=== PATIENT | male | born 1960 | race Caucasian/White ===

== ENCOUNTER 2017-04-02 13:01 | Inpatient (IN) | payer OTHER ==
[~2017-04-02] VITALS: Ht 177.8 cm; Wt 80.5 kg
[~2017-04-02 13:01] MED LIST: ALPRAZOLAM0.25 M2 PO; ALPRAZOLAM0.25 MG GT; ALPRAZOLAM0.25 MG PO; ALTACE10 M1 PO; ALTACE10 MG PO; AMBIEN5 M1 PO; AMITIZA24 MICROGR PO; ANALGESIC325 M1 PO; ANALGESIC325 MG PO; ASPIR-MOX 325325 MG PO; ASPIR-TRIN325 M1 PO; ASPIRIN325 MG PO; Advair HFA 115/21 IH; Ambien PO; BACLOFEN10 MG PO; BICARSIM80 MG PO; CALCIUM CITRAT1 EA18 PO; CARAFATE1 GM PO; CARDIZEM30 MG PO; CATAPRES-TTS 30.3 MG TD; CATAPRES0.1 MG GT; CATAPRES0.2 MG PO; CERTAGEN237 ML PO; CLONIDINE1 EAC1 TD; COLACE100 MG PO; Chronulac,Cephulac,E GT; Colace GT; DELTASONE10 MG GT; DELTASONE10 MG PO; DICLOFENAC SODI75 MG PO; DILAUDID1 MG/ML IV; DOLOPHINE HCL5 MG GT; DULCOLAX10 MG PR; DUONEB 2.5-0.5 M3 ML AEROSOL; DUONEB3 ML IH; DURAGESIC75 MCG TD; Duragesic TD; EMS NITROSTAT0.4 M1 SL; ERGOCALCIF50000 UNIT PO; FEOSOL325 MG PO; FERROUS SULFAT325 MG PO; FISH OIL 1,0001 EAC7 PO; FLAGYL500 MG PO; FLOMAX0.4 MG PO; FOLIC ACID1 MG PO; FOSAMAX5 MG PO; GABAPENTIN300 MG PO; GLUCAGEN1 MG IM/SC; Heparin Lock 100 uni IV; IMDUR30 MG GT; IMDUR30 MG PEG; IMDUR30 MG PO; IRON325 M1 PO; IRON325 MG PO; KLONOPIN0.5 M1 PO; KRISTALOSE10 GM PO; LASIX20 MG PO; LASIX40 MG PO; LIORESAL10 MG PO; LIPITOR80 MG PO; LOPRESSOR12.5 MG PO; LOPRESSOR25 MG GT; LOPRESSOR25 MG PO; LOVAZA1 GM PO; LOVENOX40 MG/0.4 PO; LOVENOX40 MG/0.4 SC; MAG-OXIDE400 MG PO; MARINOL2.5 M1 PO; METOPROLOL SUCC25 MG PO; MIRALAX17 GM PO; MITRAZOL POWDER30 GM TP; MORPHINE SULFAT30 M1 PO; MORPHINE SULFAT30 M4 PO; MS CONTIN,ORAMO30 MG PO; MYCOSTATIN 100,60 ML PO; Marinol PO; Maxipime IV; Mylicon,Mylanta Gas, PO; NEURONTIN300 MG GT; NEURONTIN300 MG PO; NEURONTIN600 M1 PO; NEURONTIN600 MG PO; NEURONTIN800 MG PO; NIZORAL 2% CREA15 GM TP; NORVASC10 MG PO; NOVOLOG PE100 UNITS/ SC; Neurontin PO; OMEGA 3 1,0001 EAC1 PO; OMEGA 3 1,0001 EACH PO; OXYCODONE5 MG PO; Omega III EPA + DHA PO; PAROXETINE HCL40 MG PO; PAXIL20 M1 PO; PAXIL30 MG PO; POLYETHYLENE G255 GM PO; PREDNISONE10 MG PO; PREVACID PO; PREVACID SOLUTA30 M1 GT; PREVACID SOLUTA30 M1 PO; PRINIVIL20 MG PO; PROCRIT3000 UNIT/ SC; PROCRIT4000 UNIT/ SC; PROCRIT4000 UNIT/ SQ; PROTONIX40 MG PO; PULMOCARE1000 ML GT; Paxil PO; ROCEPHIN 2 GM VI2 GM IM; ROCEPHIN1 GM/50 ML IV; ROXICODONE5 MG/5 ML GT; Remove Duragesic Pat TD; SALINE FLUSH 5 M5 ML IV; SANTYL30 GM TP; SENNA8.6 MG PO; SENOKOT,SENN1 TABLET PO; SPIRONOLACTONE25 MG PO; STOOL SOFTENER50 MG PO; SUCRALFATE1 GM PO; Senokot,Sennagen PO; THIAMINE HCL100 MG PO; TOBRAMYCIN IV; TRAZODONE HCL50 MG PO; TYLENOL650 MG/20. PO; VALIUM5 MG PO; VANCOMYCIN100 MG/ML IV; VIBRAMYCIN100 MG PO; VICODIN 5-3001 EACH PO; Valium PO; Vancomycin IV; WELLBUTRIN SR100 MG PO; WELLBUTRIN100 MG PO; ZANTAC300 MG PO; ZYVOX600 MG PO; Zestril,Prinivil PO; Zofran IV; [UNRECOGNIZED DRUG - OTHER]; oxyCODONE GT; oxyCODONE PO
[2017-04-02 14:35] LABS: EOSINOPHIL (%) 0.4 % (0-5); EOSINOPHIL COUNT 0.1 K/uL (0-0.3); HEMATOCRIT 48.1 % (38.0-50.0); IMMATURE GRANULOCYTE (%) 0.8 % (0.0-0.7); IMMATURE GRANULOCYTE COUNT 0.2 K/uL; INSTRUMENT ABS NEUTROPHIL CT 15.1 K/uL; LYMPHOCYTE COUNT 2.1 K/uL (1.0-2.8); MCH 27.4 PG (29.0-34.0); MCHC 30.8 G/DL (30.0-36.0); MCV 88.9 FL (86-99); MEAN PLAT.VOLUME 9.6 uM^3 (9.0-12.4); MONOCYTE (%) 8.4 % (3-12); MONOCYTE COUNT 1.6 K/uL (0-0.8); NEUTROPHIL (%) 79.3 % (45-76); NEUTROPHIL COUNT 15.1 K/uL (1.8-6.4); PLATELET COUNT 127 K/uL (156-360); RBC DIS.WIDTH-CV 17.3 % (11.8-14.6); RED BLOOD COUNT 5.41 M/uL (4.00-5.50)
[2017-04-02 14:45] LABS: CHLORIDE 100 mEq/L (99-109); POTASSIUM 4.5 mEq/L (3.7-5.4); SODIUM 139 mEq/L (136-147)
[2017-04-02 14:47] LABS: GLUCOSE 127 mg/dL (70-99)
[2017-04-02 14:48] LABS: ANION GAP 7 MEQ/L (2-14)
[2017-04-02 14:49] LABS: TOTAL BILIRUBIN 1.3 mg/dL (0.0-1.0)
[2017-04-02 14:50] LABS: ALKALINE PHOSPHATASE 82 IU/L (3-129)
[2017-04-02 14:51] LABS: GFR ESTIMATE (CALCULATED) > 59 mL/min/
[2017-04-02 14:52] LABS: UREA NITROGEN (BUN) 19 mg/dL (9-23)
[2017-04-02 14:54] LABS: LIPASE 15 U/L (1.0-51.0)
[2017-04-02 17:22] LABS: ADD MIUA? YES; BILIRUBIN NEGATIVE; BLOOD LARGE; COLOR AMBER ((YELLOW)); GLUCOSE (STRIP) NEGATIVE; KETONES NEGATIVE; LEUKOCYTES LARGE; NITRITE NEGATIVE; PROTEIN (STRIP) 30; SPECIFIC GRAVITY 1.035 (1.000-1.030); UROBILINOGEN 0.2 MG/DL (0.2-1.0)
[2017-04-02 17:39] LABS: CASTS NONE SEEN /LPF; EPITHELIAL CELLS 1+ /HPF; MUCUS NONE SEEN /LPF
[2017-04-02 17:40] LABS: BACTERIA 1+ /HPF; RED BLOOD CELLS NONE SEEN /HPF (0-5); UCUL ADDED? YES; WHITE BLOOD CELLS TNTC /HPF (0-5)
[2017-04-02] MEDS ORDERED: IBUPROFEN800 MG PO (18:37)
[2017-04-02] MEDS ORDERED: BACLOFEN10 MG PO (18:38)
[2017-04-02] MEDS ORDERED: DUONEB 2.5-0.5 M3 ML AEROSOL (18:42)
[2017-04-02] MEDS ORDERED: ADVAIR 250/501 DISK IH (18:44)
[2017-04-02] MEDS ORDERED: BUSPAR10 MG PO (18:45)
[2017-04-02] MEDS ORDERED: AMITIZA24 MICROGR PO (18:45)
[2017-04-02] MEDS ORDERED: DOXYCYCLINE HY100 M3 PO (18:48)
[2017-04-02] MEDS ORDERED: FERROUS SULFAT325 MG PO (18:50)
[2017-04-02] MEDS ORDERED: FLONASE ALLERG9.9 ML BOTH NARES (18:53)
[2017-04-02] MEDS ORDERED: KLOR-CON 1010 ME1 PO (18:55)
[2017-04-02] MEDS ORDERED: LACTULOSE10 GM/151 PO (18:56)
[2017-04-02] MEDS ORDERED: LIPITOR80 MG PO (18:57)
[2017-04-02] MEDS ORDERED: PANTOPRAZOLE SO40 MG PO (18:59)
[2017-04-02] MEDS ORDERED: FLORASTOR250 MG PO (19:04)
[2017-04-02] MEDS ORDERED: MILK OF MAGN PO (19:06)
[2017-04-02] MEDS ORDERED: SALINE NASAL SP45 ML BOTH NARES (19:07)
[2017-04-02] MEDS ORDERED: DULCOLAX10 MG PR (19:10)
[2017-04-02 19:38] LABS: TROP-I INTERPRETATION NEGATIVE; TROPONIN-I < 0.01 ng/mL (0.0-0.30)
[2017-04-02 19:42] LABS: INTER. NORMALIZED RATIO 1.2; PROTHROMBIN TIME 12.7 (9.2-11.2); PTT 31.1 (25-32)
[2017-04-02 21:18] VITALS: BP 126/82
[2017-04-02 22:08] LABS: METH RESISTANT S AUREUS PCR POSITIVE (NEGATIVE)
[2017-04-02 22:09] LABS: PROBE CHECK PASS
[2017-04-02 23:31] VITALS: BP 143/65
[2017-04-03 03:07] VITALS: BP 129/64
[2017-04-03 05:36] LABS: ALKALINE PHOSPHATASE 72 IU/L (3-129); ANION GAP 8 MEQ/L (2-14); CHLORIDE 106 MEQ/L (99-109); GFR ESTIMATE (CALCULATED) > 59 mL/min/; GLUCOSE 118 mg/dL (70-99); POTASSIUM 4.2 MEQ/L (3.7-5.4); SAMPLE HEMOLYSIS CHECK 0; SAMPLE ICTERIC CHECK 0; SAMPLE LIPEMIA CHECK 0; SODIUM 141 MEQ/L (136-147); TOTAL BILIRUBIN 1.8 MG/DL (0.0-1.0); UREA NITROGEN (BUN) 16 mg/dL (9-23)
[2017-04-03 05:37] LABS: EOSINOPHIL (%) 0.1 % (0-5); HEMATOCRIT 45.3 % (38.0-50.0); IMMATURE GRANULOCYTE (%) 0.6 % (0.0-0.7); IMMATURE GRANULOCYTE COUNT 0.1 K/uL; INSTRUMENT ABS NEUTROPHIL CT 10.2 K/uL; LYMPHOCYTE COUNT 0.7 K/uL (1.0-2.8); MCH 27.2 PG (29.0-34.0); MCHC 30.5 G/DL (30.0-36.0); MCV 89.3 FL (86-99); MEAN PLAT.VOLUME 9.9 uM^3 (9.0-12.4); MONOCYTE (%) 5.8 % (3-12); MONOCYTE COUNT 0.7 K/uL (0-0.8); NEUTROPHIL (%) 87.1 % (45-76); NEUTROPHIL COUNT 10.2 K/uL (1.8-6.4); PLATELET COUNT 105 K/uL (156-360); RBC DIS.WIDTH-CV 17.5 % (11.8-14.6); RBC DIS.WIDTH-SD 56.7 % (39-53); RED BLOOD COUNT 5.07 M/uL (4.00-5.50); WHITE BLOOD COUNT 11.7 K/uL (4.1-10.2)
[2017-04-03 05:42] LABS: HEMATOLOGY COMMENT 1 SMEAR COMPATIBLE
[2017-04-03 07:46] LABS: Estimated Average Glucose 126 mg/dL (70-123)
[2017-04-03 07:49] VITALS: BP 128/63
[2017-04-03 16:04] VITALS: BP 150/73
[2017-04-03 21:23] LABS: POINT-OF-CARE METER ID UU14188577
[2017-04-03 23:11] VITALS: BP 137/69
[2017-04-04 05:19] LABS: HEMATOCRIT 44.9 % (38.0-50.0); MCH 27.1 PG (29.0-34.0); MCHC 30.7 G/DL (30.0-36.0); MCV 88.2 FL (86-99); MEAN PLAT.VOLUME 10.2 uM^3 (9.0-12.4); PLATELET COUNT 117 K/uL (156-360); RBC DIS.WIDTH-CV 17.5 % (11.8-14.6); RBC DIS.WIDTH-SD 56.5 % (39-53); RED BLOOD COUNT 5.09 M/uL (4.00-5.50); WHITE BLOOD COUNT 8.3 K/uL (4.1-10.2)
[2017-04-04 05:33] LABS: CHLORIDE 104 mEq/L (99-109); POTASSIUM 4.3 mEq/L (3.7-5.4); SODIUM 143 mEq/L (136-147)
[2017-04-04 05:34] LABS: MAGNESIUM 2.2 mg/dL (1.3-2.7)
[2017-04-04 05:35] LABS: GLUCOSE 100 mg/dL (70-99)
[2017-04-04 05:36] LABS: ANION GAP 12 MEQ/L (2-14)
[2017-04-04 05:38] LABS: GFR ESTIMATE (CALCULATED) > 59 mL/min/
[2017-04-04 05:39] LABS: UREA NITROGEN (BUN) 22 mg/dL (9-23)
[2017-04-04 07:39] VITALS: BP 134/67
[2017-04-04 16:18] VITALS: BP 152/74
[2017-04-04 17:33] LABS: POINT-OF-CARE METER ID UU14149397
[2017-04-04 20:24] VITALS: BP 140/66
[2017-04-05 00:47] VITALS: BP 137/66
[2017-04-05 05:00] LABS: EOSINOPHIL (%) 2.2 % (0-5); EOSINOPHIL COUNT 0.1 K/uL (0-0.3); HEMATOCRIT 43.5 % (38.0-50.0); IMMATURE GRANULOCYTE (%) 0.4 % (0.0-0.7); INSTRUMENT ABS NEUTROPHIL CT 4.3 K/uL; LYMPHOCYTE COUNT 0.6 K/uL (1.0-2.8); MCH 26.9 PG (29.0-34.0); MCHC 30.3 G/DL (30.0-36.0); MCV 88.6 FL (86-99); MEAN PLAT.VOLUME 9.8 uM^3 (9.0-12.4); MONOCYTE (%) 10.8 % (3-12); MONOCYTE COUNT 0.6 K/uL (0-0.8); NEUTROPHIL (%) 76.7 % (45-76); NEUTROPHIL COUNT 4.3 K/uL (1.8-6.4); PLATELET COUNT 105 K/uL (156-360); RBC DIS.WIDTH-CV 17.5 % (11.8-14.6); RBC DIS.WIDTH-SD 57.5 % (39-53); RED BLOOD COUNT 4.91 M/uL (4.00-5.50)
[2017-04-05 05:01] VITALS: BP 148/72
[2017-04-05 05:01] LABS: WHITE BLOOD COUNT 5.5 K/uL (4.1-10.2)
[2017-04-05 05:12] LABS: CHLORIDE 104 mEq/L (99-109); POTASSIUM 3.7 mEq/L (3.7-5.4); SODIUM 142 mEq/L (136-147)
[2017-04-05 05:14] LABS: GLUCOSE 104 mg/dL (70-99)
[2017-04-05 05:15] LABS: ANION GAP 8 MEQ/L (2-14)
[2017-04-05 05:16] LABS: TOTAL BILIRUBIN 1.5 mg/dL (0.0-1.0)
[2017-04-05 05:17] LABS: ALKALINE PHOSPHATASE 85 IU/L (3-129)
[2017-04-05 05:18] LABS: GFR ESTIMATE (CALCULATED) > 59 mL/min/
[2017-04-05 05:19] LABS: UREA NITROGEN (BUN) 16 mg/dL (9-23)
[2017-04-05 09:00] VITALS: BP 122/54
[2017-04-05 11:44] LABS: POINT-OF-CARE METER ID UU14188577
[2017-04-05 11:45] VITALS: BP 130/54
[2017-04-05 17:21] LABS: POINT-OF-CARE METER ID UU14149397
[2017-04-05 19:55] VITALS: BP 159/72
[2017-04-05 21:26] LABS: POINT-OF-CARE METER ID UU14188577
[2017-04-05 23:44] VITALS: BP 132/63
[2017-04-06 03:56] VITALS: BP 169/76
[2017-04-06 06:06] LABS: EOSINOPHIL (%) 1.6 % (0-5); EOSINOPHIL COUNT 0.1 K/uL (0-0.3); HEMATOCRIT 43.2 % (38.0-50.0); IMMATURE GRANULOCYTE (%) 0.3 % (0.0-0.7); INSTRUMENT ABS NEUTROPHIL CT 4.8 K/uL; MCH 26.9 PG (29.0-34.0); MCHC 30.1 G/DL (30.0-36.0); MCV 89.3 FL (86-99); MEAN PLAT.VOLUME 9.7 uM^3 (9.0-12.4); MONOCYTE (%) 14.5 % (3-12); NEUTROPHIL (%) 69.1 % (45-76); NEUTROPHIL COUNT 4.8 K/uL (1.8-6.4); PLATELET COUNT 102 K/uL (156-360); RBC DIS.WIDTH-CV 17.7 % (11.8-14.6); RBC DIS.WIDTH-SD 58.9 % (39-53); RED BLOOD COUNT 4.84 M/uL (4.00-5.50)
[2017-04-06 06:37] LABS: ALKALINE PHOSPHATASE 78 IU/L (3-129); ANION GAP 8 MEQ/L (2-14); CHLORIDE 102 MEQ/L (99-109); GFR ESTIMATE (CALCULATED) > 59 mL/min/; GLUCOSE 86 mg/dL (70-99); POTASSIUM 3.5 MEQ/L (3.7-5.4); SAMPLE HEMOLYSIS CHECK 0; SAMPLE ICTERIC CHECK 0; SAMPLE LIPEMIA CHECK 0; SODIUM 142 MEQ/L (136-147); UREA NITROGEN (BUN) 13 mg/dL (9-23)
[2017-04-06 06:44] LABS: PREALBUMIN < 3.0 mg/dL (10-40); TOTAL BILIRUBIN 1.4 MG/DL (0.0-1.0)
[2017-04-06 08:47] VITALS: BP 135/64
[2017-04-06 11:47] LABS: POINT-OF-CARE METER ID UU14188577
[2017-04-06 16:30] VITALS: BP 139/77
[2017-04-06 21:22] LABS: POINT-OF-CARE METER ID UU14188577
[2017-04-06 23:51] VITALS: BP 132/69
[2017-04-07 04:31] VITALS: BP 175/86
[2017-04-07 05:24] LABS: EOSINOPHIL (%) 3.7 % (0-5); EOSINOPHIL COUNT 0.2 K/uL (0-0.3); HEMATOCRIT 42.4 % (38.0-50.0); IMMATURE GRANULOCYTE (%) 0.5 % (0.0-0.7); INSTRUMENT ABS NEUTROPHIL CT 3.7 K/uL; LYMPHOCYTE COUNT 1.1 K/uL (1.0-2.8); MCH 26.6 PG (29.0-34.0); MCHC 29.7 G/DL (30.0-36.0); MCV 89.6 FL (86-99); MEAN PLAT.VOLUME 9.8 uM^3 (9.0-12.4); MONOCYTE (%) 11.7 % (3-12); MONOCYTE COUNT 0.7 K/uL (0-0.8); NEUTROPHIL (%) 64.4 % (45-76); NEUTROPHIL COUNT 3.7 K/uL (1.8-6.4); PLATELET COUNT 106 K/uL (156-360); RBC DIS.WIDTH-CV 17.8 % (11.8-14.6); RBC DIS.WIDTH-SD 59.2 % (39-53); RED BLOOD COUNT 4.73 M/uL (4.00-5.50); WHITE BLOOD COUNT 5.7 K/uL (4.1-10.2)
[2017-04-07 05:49] LABS: ALKALINE PHOSPHATASE 86 IU/L (3-129); ANION GAP 5 MEQ/L (2-14); CHLORIDE 100 MEQ/L (99-109); GFR ESTIMATE (CALCULATED) > 59 mL/min/; POTASSIUM 3.8 MEQ/L (3.7-5.4); SAMPLE HEMOLYSIS CHECK 0; SAMPLE ICTERIC CHECK 0; SAMPLE LIPEMIA CHECK 0; SODIUM 142 MEQ/L (136-147); UREA NITROGEN (BUN) 10 mg/dL (9-23)
[2017-04-07 05:50] LABS: GLUCOSE 114 mg/dL (70-99)
[2017-04-07 08:33] VITALS: BP 119/65
[2017-04-07 15:20] VITALS: BP 125/62
[2017-04-07 23:43] VITALS: BP 136/61
[2017-04-08 05:35] LABS: HEMATOCRIT 41.9 % (38.0-50.0); MCH 26.8 PG (29.0-34.0); MCHC 30.1 G/DL (30.0-36.0); MCV 89.1 FL (86-99); PLATELET COUNT 132 K/uL (156-360); RBC DIS.WIDTH-CV 17.3 % (11.8-14.6); RBC DIS.WIDTH-SD 56.8 % (39-53); WHITE BLOOD COUNT 5.8 K/uL (4.1-10.2)
[2017-04-08 05:55] LABS: ALKALINE PHOSPHATASE 92 IU/L (3-129); ANION GAP 7 MEQ/L (2-14); CHLORIDE 98 MEQ/L (99-109); GFR ESTIMATE (CALCULATED) > 59 mL/min/; GLUCOSE 107 mg/dL (70-99); POTASSIUM 3.7 MEQ/L (3.7-5.4); SAMPLE HEMOLYSIS CHECK 0; SAMPLE ICTERIC CHECK 0; SAMPLE LIPEMIA CHECK 0; SODIUM 143 MEQ/L (136-147); TOTAL BILIRUBIN 0.9 MG/DL (0.0-1.0); UREA NITROGEN (BUN) 10 mg/dL (9-23)
[2017-04-08 06:25] LABS: EOSINOPHIL (%) 4.8 % (0-5); EOSINOPHIL COUNT 0.3 K/uL (0-0.3); IMMATURE GRANULOCYTE (%) 0.3 % (0.0-0.7); INSTRUMENT ABS NEUTROPHIL CT 3.8 K/uL; LYMPHOCYTE COUNT 1.3 K/uL (1.0-2.8); MONOCYTE (%) 7.7 % (3-12); MONOCYTE COUNT 0.5 K/uL (0-0.8); NEUTROPHIL (%) 64.8 % (45-76); NEUTROPHIL COUNT 3.8 K/uL (1.8-6.4)
[2017-04-08 07:55] VITALS: BP 156/75
[2017-04-08 12:11] LABS: POINT-OF-CARE METER ID UU14188577
[2017-04-08 16:16] VITALS: BP 143/69
[2017-04-08 22:08] LABS: POINT-OF-CARE METER ID UU14188577
[2017-04-08 23:41] VITALS: BP 138/68
[2017-04-09 04:00] VITALS: BP 135/77
[2017-04-09 06:58] LABS: POINT-OF-CARE METER ID UU14188577
[2017-04-09 07:15] LABS: HEMATOCRIT 39.9 % (38.0-50.0); MCH 27.5 PG (29.0-34.0); MCHC 30.8 G/DL (30.0-36.0); MCV 89.3 FL (86-99); MEAN PLAT.VOLUME 9.9 uM^3 (9.0-12.4); PLATELET COUNT 140 K/uL (156-360); RBC DIS.WIDTH-SD 55.8 % (39-53); RED BLOOD COUNT 4.47 M/uL (4.00-5.50); WHITE BLOOD COUNT 5.1 K/uL (4.1-10.2)
[2017-04-09 07:40] LABS: ALKALINE PHOSPHATASE 86 IU/L (3-129); ANION GAP 6 MEQ/L (2-14); CHLORIDE 98 MEQ/L (99-109); GFR ESTIMATE (CALCULATED) > 59 mL/min/; GLUCOSE 132 mg/dL (70-99); POTASSIUM 3.7 MEQ/L (3.7-5.4); SAMPLE HEMOLYSIS CHECK 0; SAMPLE ICTERIC CHECK 0; SAMPLE LIPEMIA CHECK 0; SODIUM 141 MEQ/L (136-147); TOTAL BILIRUBIN 0.8 MG/DL (0.0-1.0); UREA NITROGEN (BUN) 10 mg/dL (9-23)
[2017-04-09 08:00] LABS: ABS NEUTROPHIL COUNT 3.4; ANISOCYTOSIS 1+; ATYPICAL LYMPHOCYTE 5.2 %; BAND NEUTROPHILS 1.7 % (0-8.0); EOSINOPHIL (%) 3.9 % (0-5); EOSINOPHIL ABS CT 0.4; EOSINOPHIL COUNT 0.2 K/uL (0-0.3); IMMATURE GRANULOCYTE (%) 0.8 % (0.0-0.7); INSTRUMENT ABS NEUTROPHIL CT 3.4 K/uL; LYMPHOCYTE COUNT 1.1 K/uL (1.0-2.8); LYMPHOCYTES 15.7 % (15.0-45.0); MACROCYTES 1+; METAMYELOCYTES 0.9 %; MONOCYTE COUNT 0.4 K/uL (0-0.8); NEUTROPHIL (%) 66.2 % (45-76); NEUTROPHIL COUNT 3.4 K/uL (1.8-6.4); PLAT.SUFFICIENCY ADEQUATE; SEG.NEUTROPHILS 64.3 % (46.0-76.0)
[2017-04-09 08:08] VITALS: BP 122/58
[2017-04-09 11:20] LABS: POINT-OF-CARE METER ID UU14188577
[2017-04-09 22:08] LABS: BICARBONATE 39.8 mEq/L (22-26); CARBOXY HGB 1.9 % (0-5); COMMENTS - BLOOD GASES C+; DEVICE VENT; FI02 100 %; MECHANICAL RATE 16 resp/min; METHEMOGLOBIN 1.3 % (0-1.5); MODE AC; PCO2 60 mm Hg (35-45); PO2 446 mm Hg (80-100); SITE RR; TIDAL VOLUME 500 ML; TOTAL RESP RATE 16 resp/min; pH 7.43 (7.35-7.45)
[2017-04-09 22:09] LABS: PEEP 5 CM/H20
[2017-04-09 22:28] VITALS: BP 92/64
[2017-04-09 23:00] VITALS: BP 89/62
[2017-04-10] VITALS (24 sets, daily range): BP systolic 88–127; BP diastolic 33–67
[2017-04-10 00:19] LABS: METH RESISTANT S AUREUS PCR POSITIVE (NEGATIVE)
[2017-04-10 00:32] LABS: PROBE CHECK PASS
[2017-04-10 06:47] LABS: EOSINOPHIL (%) 1.1 % (0-5); EOSINOPHIL COUNT 0.1 K/uL (0-0.3); HEMATOCRIT 38.4 % (38.0-50.0); IMMATURE GRANULOCYTE (%) 1.3 % (0.0-0.7); IMMATURE GRANULOCYTE COUNT 0.1 K/uL; LYMPHOCYTE COUNT 1.5 K/uL (1.0-2.8); MCH 27.6 PG (29.0-34.0); MCHC 31.5 G/DL (30.0-36.0); MCV 87.7 FL (86-99); MEAN PLAT.VOLUME 10.7 uM^3 (9.0-12.4); MONOCYTE (%) 6.7 % (3-12); MONOCYTE COUNT 0.6 K/uL (0-0.8); NEUTROPHIL (%) 72.9 % (45-76); RBC DIS.WIDTH-CV 17.1 % (11.8-14.6); RBC DIS.WIDTH-SD 54.6 % (39-53); RED BLOOD COUNT 4.38 M/uL (4.00-5.50)
[2017-04-10 06:48] LABS: PLATELET COUNT 217 K/uL (156-360); WHITE BLOOD COUNT 8.3 K/uL (4.1-10.2)
[2017-04-10 07:20] LABS: ALKALINE PHOSPHATASE 71 IU/L (3-129); ANION GAP 7 MEQ/L (2-14); CHLORIDE 98 MEQ/L (99-109); GFR ESTIMATE (CALCULATED) > 59 mL/min/; GLUCOSE 160 mg/dL (70-99); SAMPLE HEMOLYSIS CHECK 0; SAMPLE ICTERIC CHECK 0; SAMPLE LIPEMIA CHECK 0; SODIUM 140 MEQ/L (136-147); UREA NITROGEN (BUN) 14 mg/dL (9-23)
[2017-04-10 07:30] LABS: POTASSIUM 5.1 MEQ/L (3.7-5.4)
[2017-04-10 08:24] LABS: MAGNESIUM 1.9 mg/dl (1.3-2.7)
[2017-04-10 10:08] LABS: ADD MIUA? YES; BILIRUBIN NEGATIVE; BLOOD LARGE; COLOR AMBER ((YELLOW)); GLUCOSE (STRIP) NEGATIVE; KETONES NEGATIVE; LEUKOCYTES LARGE; NITRITE NEGATIVE; PROTEIN (STRIP) 100; SPECIFIC GRAVITY 1.021 (1.000-1.030); UROBILINOGEN 0.2 MG/DL (0.2-1.0)
[2017-04-10 10:24] LABS: BACTERIA RARE /HPF; CALCIUM OXALATE CRYSTALS 3+ /HPF; EPITHELIAL CELLS NONE SEEN /HPF; MUCUS TRACE /LPF; RED BLOOD CELLS TNTC /HPF (0-5); WHITE BLOOD CELLS TNTC /HPF (0-5)
[2017-04-10 10:29] LABS: BASE EXCESS 12.9 mEq/L (-3 to +3); BICARBONATE 40.2 mEq/L (22-26); METHEMOGLOBIN 1.3 % (0-1.5); pH 7.38 (7.35-7.45)
[2017-04-10 10:30] LABS: COMMENTS - BLOOD GASES A+C+; DEVICE 840 PB; FI02 45 %; MODE TC; PCO2 68 mm Hg (35-45); PEEP 5 CM/H20; PO2 97 mm Hg (80-100); SITE RR; TOTAL RESP RATE 14 resp/min
[2017-04-10 13:49] LABS: BASE EXCESS 15.4 mEq/L (-3 to +3); BICARBONATE 42.2 mEq/L (22-26); CARBOXY HGB 1.9 % (0-5); METHEMOGLOBIN 1.4 % (0-1.5); PCO2 65 mm Hg (35-45); PO2 101 mm Hg (80-100); pH 7.42 (7.35-7.45)
[2017-04-10 13:50] LABS: COMMENTS - BLOOD GASES A+C+; FI02 45 %; SITE RR
[2017-04-10 13:51] LABS: DEVICE 840 PB; MODE TC; PEEP 5 CM/H20; TOTAL RESP RATE 19 resp/min
[2017-04-11] VITALS (21 sets, daily range): BP systolic 92–129; BP diastolic 36–89
[2017-04-11 08:00] LABS: ALKALINE PHOSPHATASE 53 IU/L (3-129); ANION GAP 7 MEQ/L (2-14); CHLORIDE 103 MEQ/L (99-109); GFR ESTIMATE (CALCULATED) > 59 mL/min/; GLUCOSE 127 mg/dL (70-99); SAMPLE HEMOLYSIS CHECK 0; SAMPLE ICTERIC CHECK 0; SAMPLE LIPEMIA CHECK 0; SODIUM 144 MEQ/L (136-147); UREA NITROGEN (BUN) 11 mg/dL (9-23)
[2017-04-11 08:01] LABS: POTASSIUM 3.8 MEQ/L (3.7-5.4); TOTAL BILIRUBIN 0.6 MG/DL (0.0-1.0)
[2017-04-11 08:17] LABS: EOSINOPHIL (%) 0.1 % (0-5); HEMATOCRIT 25.6 % (38.0-50.0); IMMATURE GRANULOCYTE (%) 1.1 % (0.0-0.7); IMMATURE GRANULOCYTE COUNT 0.1 K/uL; INSTRUMENT ABS NEUTROPHIL CT 5.7 K/uL; LYMPHOCYTE COUNT 1.1 K/uL (1.0-2.8); MCH 28.1 PG (29.0-34.0); MCHC 31.6 G/DL (30.0-36.0); MCV 88.9 FL (86-99); MEAN PLAT.VOLUME 10.5 uM^3 (9.0-12.4); MONOCYTE COUNT 0.5 K/uL (0-0.8); NEUTROPHIL (%) 77.1 % (45-76); NEUTROPHIL COUNT 5.7 K/uL (1.8-6.4); PLATELET COUNT 158 K/uL (156-360); RBC DIS.WIDTH-CV 17.2 % (11.8-14.6); RBC DIS.WIDTH-SD 55.4 % (39-53); RED BLOOD COUNT 2.88 M/uL (4.00-5.50); WHITE BLOOD COUNT 7.4 K/uL (4.1-10.2)
[2017-04-11 13:49] LABS: HEMATOCRIT 26.3 % (38.0-50.0); MCV 89.2 FL (86-99)
[2017-04-11 18:06] LABS: HEMATOCRIT 27.6 % (38.0-50.0); MCV 89.6 FL (86-99)
[2017-04-12] VITALS (21 sets, daily range): BP systolic 85–116; BP diastolic 38–92
[2017-04-12 01:05] LABS: HEMATOCRIT 27.2 % (38.0-50.0)
[2017-04-12 05:28] LABS: HEMATOCRIT 26.4 % (38.0-50.0); MCV 89.2 FL (86-99)
[2017-04-12 08:21] LABS: ANION GAP 5 MEQ/L (2-14); CHLORIDE 102 MEQ/L (99-109); GFR ESTIMATE (CALCULATED) > 59 mL/min/; MAGNESIUM 1.9 mg/dl (1.3-2.7); POTASSIUM 3.6 MEQ/L (3.7-5.4); SAMPLE HEMOLYSIS CHECK 0; SAMPLE ICTERIC CHECK 0; SAMPLE LIPEMIA CHECK 0; SODIUM 143 MEQ/L (136-147); UREA NITROGEN (BUN) 8 mg/dL (9-23)
[2017-04-12 08:23] LABS: GLUCOSE 83 mg/dL (70-99)
[2017-04-13] VITALS (13 sets, daily range): BP systolic 87–125; BP diastolic 37–59
[2017-04-13 06:36] LABS: EOSINOPHIL (%) 2.6 % (0-5); EOSINOPHIL COUNT 0.2 K/uL (0-0.3); HEMATOCRIT 26.5 % (38.0-50.0); IMMATURE GRANULOCYTE (%) 1.2 % (0.0-0.7); IMMATURE GRANULOCYTE COUNT 0.1 K/uL; INSTRUMENT ABS NEUTROPHIL CT 5.8 K/uL; LYMPHOCYTE COUNT 1.6 K/uL (1.0-2.8); MCH 27.3 PG (29.0-34.0); MCHC 30.9 G/DL (30.0-36.0); MCV 88.3 FL (86-99); MEAN PLAT.VOLUME 10.1 uM^3 (9.0-12.4); MONOCYTE (%) 7.8 % (3-12); MONOCYTE COUNT 0.7 K/uL (0-0.8); NEUTROPHIL (%) 69.4 % (45-76); NEUTROPHIL COUNT 5.8 K/uL (1.8-6.4); RBC DIS.WIDTH-CV 17.1 % (11.8-14.6); RBC DIS.WIDTH-SD 54.8 % (39-53); WHITE BLOOD COUNT 8.4 K/uL (4.1-10.2)
[2017-04-13 06:37] LABS: PLATELET COUNT 229 K/uL (156-360)
[2017-04-13 06:45] LABS: ANION GAP 4 MEQ/L (2-14); CHLORIDE 99 MEQ/L (99-109); GFR ESTIMATE (CALCULATED) > 59 mL/min/; GLUCOSE 97 mg/dL (70-99); MAGNESIUM 2.1 mg/dl (1.3-2.7); SAMPLE HEMOLYSIS CHECK 0; SAMPLE ICTERIC CHECK 0; SAMPLE LIPEMIA CHECK 0; SODIUM 139 MEQ/L (136-147); UREA NITROGEN (BUN) 8 mg/dL (9-23)
[2017-04-14] VITALS (8 sets, daily range): BP systolic 94–113; BP diastolic 38–54
[2017-04-14 07:13] LABS: EOSINOPHIL (%) 3.9 % (0-5); EOSINOPHIL COUNT 0.3 K/uL (0-0.3); HEMATOCRIT 27.6 % (38.0-50.0); IMMATURE GRANULOCYTE (%) 1.8 % (0.0-0.7); IMMATURE GRANULOCYTE COUNT 0.1 K/uL; INSTRUMENT ABS NEUTROPHIL CT 4.8 K/uL; LYMPHOCYTE COUNT 1.4 K/uL (1.0-2.8); MCH 27.8 PG (29.0-34.0); MCHC 30.8 G/DL (30.0-36.0); MCV 90.2 FL (86-99); MONOCYTE (%) 6.5 % (3-12); MONOCYTE COUNT 0.5 K/uL (0-0.8); NEUTROPHIL (%) 67.8 % (45-76); NEUTROPHIL COUNT 4.8 K/uL (1.8-6.4); PLATELET COUNT 246 K/uL (156-360); RBC DIS.WIDTH-CV 17.3 % (11.8-14.6); RBC DIS.WIDTH-SD 55.9 % (39-53); RED BLOOD COUNT 3.06 M/uL (4.00-5.50); WHITE BLOOD COUNT 7.1 K/uL (4.1-10.2)
[2017-04-14 07:41] LABS: ANION GAP 7 MEQ/L (2-14); CHLORIDE 100 MEQ/L (99-109); GFR ESTIMATE (CALCULATED) > 59 mL/min/; GLUCOSE 123 mg/dL (70-99); MAGNESIUM 2.1 mg/dl (1.3-2.7); POTASSIUM 4.7 MEQ/L (3.7-5.4); SAMPLE HEMOLYSIS CHECK 0; SAMPLE ICTERIC CHECK 0; SAMPLE LIPEMIA CHECK 0; SODIUM 139 MEQ/L (136-147); UREA NITROGEN (BUN) 11 mg/dL (9-23)
[2017-04-15 01:44] VITALS: BP 110/52
[2017-04-15 06:58] LABS: EOSINOPHIL (%) 3.8 % (0-5); EOSINOPHIL COUNT 0.3 K/uL (0-0.3); HEMATOCRIT 29.2 % (38.0-50.0); IMMATURE GRANULOCYTE (%) 2.1 % (0.0-0.7); IMMATURE GRANULOCYTE COUNT 0.2 K/uL; INSTRUMENT ABS NEUTROPHIL CT 5.1 K/uL; LYMPHOCYTE COUNT 1.6 K/uL (1.0-2.8); MCH 27.3 PG (29.0-34.0); MCHC 30.5 G/DL (30.0-36.0); MCV 89.6 FL (86-99); MEAN PLAT.VOLUME 9.9 uM^3 (9.0-12.4); MONOCYTE (%) 7.7 % (3-12); MONOCYTE COUNT 0.6 K/uL (0-0.8); NEUTROPHIL (%) 65.8 % (45-76); NEUTROPHIL COUNT 5.1 K/uL (1.8-6.4); NRBC (%) 0.3 /100 WBC (0-0); PLATELET COUNT 292 K/uL (156-360); RBC DIS.WIDTH-CV 17.3 % (11.8-14.6); RBC DIS.WIDTH-SD 55.1 % (39-53); RED BLOOD COUNT 3.26 M/uL (4.00-5.50); WHITE BLOOD COUNT 7.7 K/uL (4.1-10.2)
[2017-04-15 07:06] VITALS: BP 104/48
[2017-04-15 07:25] LABS: ANION GAP 6 MEQ/L (2-14); CHLORIDE 97 MEQ/L (99-109); GFR ESTIMATE (CALCULATED) > 59 mL/min/; GLUCOSE 104 mg/dL (70-99); MAGNESIUM 1.9 mg/dl (1.3-2.7); POTASSIUM 4.3 MEQ/L (3.7-5.4); SAMPLE HEMOLYSIS CHECK 0; SAMPLE ICTERIC CHECK 0; SAMPLE LIPEMIA CHECK 0; SODIUM 138 MEQ/L (136-147); UREA NITROGEN (BUN) 9 mg/dL (9-23)
[2017-04-15 08:00] VITALS: BP 110/52
[2017-04-15 12:00] VITALS: BP 100/56
[2017-04-15] MEDS ORDERED: VICODIN 5-3001 EACH PO (14:22)
[2017-04-15] MEDS ORDERED: NIFEREX-150,FE150 MG PO (14:22)
== END 2017-04-15 17:06 | DRG 853 ==
LOC: EME 13:01 → 4EAST 18:23 → EDOF 18:23 → 3EAST 18:23 → 4WEST 18:23 → 3EAST 20:27 → 4WEST 04-09 22:31 → 4EAST 04-12 17:56 → 4WEST 04-12 17:56 → 4EAST 04-14 12:05
PROVIDERS: Emergency Medicine; Hospitalist; Internal Medicine; Internal Medicine Nephrology; Psychiatry & Neurology Neurology; Surgery
PROC: 0F9430Z Drainage of Gallbladder with Drainage Device, Percutaneous Approach (ICD-10-PCS; principal; 2017-04-03)
PROC: 5A1935Z Respiratory Ventilation, Less than 24 Consecutive Hours (ICD-10-PCS; 2017-04-09)
PROC: 0FN44ZZ Release Gallbladder, Percutaneous Endoscopic Approach (ICD-10-PCS; 2017-04-09)
PROC: 0FT40ZZ Resection of Gallbladder, Open Approach (ICD-10-PCS; 2017-04-09)
DX: A41.51 Sepsis due to Escherichia coli [E. coli] (principal); J96.20 Acute and chronic respiratory failure, unspecified whether with hypoxia or hypercapnia; K80.01 Calculus of gallbladder with acute cholecystitis with obstruction; E43 Unspecified severe protein-calorie malnutrition; I49.5 Sick sinus syndrome; I25.10 Atherosclerotic heart disease of native coronary artery without angina pectoris; Z95.5 Presence of coronary angioplasty implant and graft; I10 Essential (primary) hypertension; E78.5 Hyperlipidemia, unspecified; D69.6 Thrombocytopenia, unspecified; M19.90 Unspecified osteoarthritis, unspecified site; G82.20 Paraplegia, unspecified; B18.2 Chronic viral hepatitis C; V89.2XXS Person injured in unspecified motor-vehicle accident, traffic, sequela; M21.372 Foot drop, left foot; M21.371 Foot drop, right foot; Z74.01 Bed confinement status; Z86.14 Personal history of Methicillin resistant Staphylococcus aureus infection; E11.9 Type 2 diabetes mellitus without complications; J44.9 Chronic obstructive pulmonary disease, unspecified; F17.220 Nicotine dependence, chewing tobacco, uncomplicated; E66.9 Obesity, unspecified; Z68.28 Body mass index [BMI] 28.0-28.9, adult; J84.10 Pulmonary fibrosis, unspecified; Z99.81 Dependence on supplemental oxygen; K82.8 Other specified diseases of gallbladder; L89.322 Pressure ulcer of left buttock, stage 2; J98.11 Atelectasis; I27.2 Other secondary pulmonary hypertension; I35.0 Nonrheumatic aortic (valve) stenosis; M24.50 Contracture, unspecified joint; E87.6 Hypokalemia; Z68.25 Body mass index [BMI] 25.0-25.9, adult
CPT/HCPCS: 31720; 36600; 49405; 71010; 74177; 80048; 80053; 81003; 82803; 82948; 83036; 83605; 83690; 83735; 84100; 84134; 84484; 85014; 85018; 85025; 85027; 85610; 85730; 87040; 87070; 87075; 87077; 87086; 87106; 87147; 87186; 87205; 87641; 88304; 93005; 93306; 94002; 94003; 94010; 94640; 94640 76; 94667; 94668; 94760; 94799; 99202; 99281; 99285; C1769; J0131; J0295; J1170; J1335; J1644; J1650; J1885; J1940; J2543; J2930; J3010; J3360; J3370; J3475; J3480; J7030; J7042; J7050; P9045; S0028

== ENCOUNTER → 2017-05-11 | Outpatient (CLI) | payer OTHER ==
[~2017-05-11] MED LIST changes: +ADVAIR 250/501 DISK IH; +BUSPAR10 MG PO; +DOXYCYCLINE HY100 M3 PO; +FLONASE ALLERG9.9 ML BOTH NARES; +FLORASTOR250 MG PO; +IBUPROFEN800 MG PO; +KLOR-CON 1010 ME1 PO; +LACTULOSE10 GM/151 PO; +MILK OF MAGN PO; +NIFEREX-150,FE150 MG PO; +PANTOPRAZOLE SO40 MG PO; +SALINE NASAL SP45 ML BOTH NARES
== END ==
LOC: AMB 12:30
DX: Z09 Encounter for follow-up examination after completed treatment for conditions other than malignant neoplasm (principal)
CPT/HCPCS: 99211

== ENCOUNTER → 2017-07-05 | Outpatient (CLI) | payer OTHER | LOC: RAD 08:06 | DX: M48.02 Spinal stenosis, cervical region (principal); Z98.890 Other specified postprocedural states | CPT/HCPCS: 72125 ==

== ENCOUNTER → 2018-01-26 | Outpatient (CLI) | payer OTHER | LOC: RAD 13:51 | DX: J44.9 Chronic obstructive pulmonary disease, unspecified (principal); J84.10 Pulmonary fibrosis, unspecified; I25.10 Atherosclerotic heart disease of native coronary artery without angina pectoris | CPT/HCPCS: 71250 ==

== ENCOUNTER → 2018-05-24 | Outpatient (CLI) | payer OTHER | END | disposition home or self-care (01) | LOC: RAD 08:25 | DX: I25.10 Atherosclerotic heart disease of native coronary artery without angina pectoris (principal) | CPT/HCPCS: 70498 ==